=== PATIENT | male | born 1975 | race Caucasian/White ===

== ENCOUNTER 2020-03-21 14:11 | Inpatient (IN) | payer OTHER, MEDICARE ==
--- NOTE | 2020-03-21 16:33 | ER Document Report ---
ED Medical Screen (RME) - General Chief Complaint: Abdominal Pain Stated Complaint: CONSTIPATION/ABDOMINAL PAIN Time Seen by Provider: 03/21/20 16:21 Mode of Arrival: Ambulatory Information source: Patient Notes: Otherwise healthy 44-year-old male presents with several day history of abdominal pain, diarrhea and abdominal bloating. Patient reports he thinks he has constipation or bowel obstruction. He denies any history of having a bowel obstruction. He does have a remote history of an inguinal hernia repair when he was a child. Otherwise he has not had any nausea, vomiting, fever. No known exposure to any COVID-19 positive persons. Abdomen slightly distended, mild tenderness to the left lower quadrant. I have greeted and performed a rapid initial assessment of this patient. A comprehensive ED assessment and evaluation of the patient, analysis of test results and completion of the medical decision making process will be conducted by additional ED providers. I have specifically instructed the patient or family members with the patient to immediately return to any nursing staff should anything change in the patient's condition or with their chief complaint. - Related Data Allergies/Adverse Reactions: No Known Allergies Allergy (Verified 03/21/20 16:29) Past Medical History - Social History Frequency of alcohol use: None Drug Abuse: None Physical Exam - Vital signs Vitals: Temp Pulse Resp BP Pulse Ox 99.4 F 78 16 154/86 H 100 03/21/20 14:20 03/21/20 14:20 03/21/20 14:20 03/21/20 14:20 03/21/20 14:20 Course - Vital Signs Vital signs: Temp Pulse Resp BP Pulse Ox 99.4 F 78 16 154/86 H 100 03/21/20 14:20 03/21/20 14:20 03/21/20 14:20 03/21/20 14:20 03/21/20 14:20
--- NOTE | 2020-03-21 16:37 | RADIOLOGY REPORT (SQ) ---
EXAM DESCRIPTION: KUB/ABDOMEN (SINGLE VIEW) IMAGES COMPLETED DATE/TIME: 03/21/2020 4:28 pm REASON FOR STUDY: abd pain, no BM COMPARISON: None. NUMBER OF VIEWS: One view. TECHNIQUE: Supine radiographic image of the abdomen acquired. LIMITATIONS: None. FINDINGS: BOWEL GAS PATTERN: Normal bowel gas pattern. No dilated loops. CALCIFICATIONS: Scattered calcific densities overlie the pelvis, likely pelvic phleboliths. Punctate radiodensity overlies right colon, possibly retained contrast from prior contrasted exam or bismuth (Pepto-Bismol). SOFT TISSUES: No gross mass or suggestion of organomegaly. HARDWARE: None in the abdomen. BONES: No acute fracture. No worrisome bone lesions. OTHER: No other significant finding. IMPRESSION: No evidence of intestinal obstruction or other acute intra-abdominal/pelvic process. TECHNICAL DOCUMENTATION: JOB ID: [id number] [employer]- All Rights Reserved Reading location - IP/workstation name: [email or web address]
[2020-03-21 16:58] LABS: ABSOLUTE EOSINOPHILS # (AUTO) 0.2 10^3/uL (0.0-0.6); ABSOLUTE LYMPHOCYTES (AUTO) 3.2 10^3/uL (0.5-4.7); ABSOLUTE MONOCYTES (AUTO) 0.7 10^3/uL (0.1-1.4); ABSOLUTE NEUT (AUTO) 7.1 10^3/uL (1.7-8.2); BASOPHILS % (AUTO) 0.4 % (0-2); EOSINOPHILS % (AUTO) 1.8 % (0-6); HEMATOCRIT 46.2 % (37.9-51.0); HEMOGLOBIN 16.2 g/dL (13.5-17.0); LYMPHOCYTES % (AUTO) 28.3 % (13-45); MEAN CORPUSCULAR HEMOGLOBIN 31.3 pg (27.0-33.4); MEAN CORPUSCULAR VOLUME 89 fl (80-97); MONOCYTES % (AUTO) 6.3 % (3-13); PLATELET COUNT 307 10^3/uL (150-450); RED BLOOD COUNT 5.17 10^6/uL (4.35-5.55); RED CELL DISTRIBUTION WIDTH 13.2 % (11.5-14.0); SEGMENTED NEUTROPHILS % (AUTO) 63.2 % (42-78); TOTAL CELLS COUNTED % (AUTO) 100 %; WHITE BLOOD COUNT 11.2 10^3/uL (4.0-10.5)
[2020-03-21 17:17] LABS: APPEARANCE,URINE CLEAR; BILIRUBIN,URINE NEGATIVE (NEGATIVE); COLOR,URINE YELLOW; GLUCOSE, URINE NEGATIVE (NEGATIVE); KETONES,URINE NEGATIVE (NEGATIVE); LEUKOCYTE ESTERASE,URINE NEGATIVE (NEGATIVE); NITRITE,URINE NEGATIVE (NEGATIVE); PROTEIN,URINE NEGATIVE (NEGATIVE); URINE SPECIFIC GRAVITY 1.017; UROBILINOGEN,URINE NEGATIVE mg/dL (<2.0)
[2020-03-21 17:18] LABS: ALBUMIN 4.8 g/dL (3.5-5.0); ALKALINE PHOSPHATASE 89 U/L (38-126); ANION GAP 6 (5-19); ASPARTATE AMINO TRANSFERASE 28 U/L (17-59); BILIRUBIN,TOTAL 0.5 mg/dL (0.2-1.3); BLOOD UREA NITROGEN 11 mg/dL (7-20); CARBON DIOXIDE 26 mmol/L (22-30); CHLORIDE 105 mmol/L (98-107); GLUCOSE 109 mg/dL (75-110); POTASSIUM 4.5 mmol/L (3.6-5.0); TOTAL PROTEIN 7.7 g/dL (6.3-8.2)
--- NOTE | 2020-03-21 23:58 | ER Document Report ---
ED GI/ - General Chief Complaint: Abdominal Pain Stated Complaint: CONSTIPATION/ABDOMINAL PAIN Time Seen by Provider: 03/21/20 16:21 Mode of Arrival: Ambulatory Notes: 44-year-old man presents to the emergency department with a 2-day history of left lower quadrant abdominal pain. Patient notes that he is had the sensation of constipation and has had some diarrhea over the past 24 hours. He denies fever, nausea vomiting or a prior history of abdominal surgeries. He rates his pain a 10/10 and located in the left lower quadrant area. - Related Data Allergies/Adverse Reactions: No Known Allergies Allergy (Verified 03/21/20 17:07) Past Medical History - General Information source: Patient - Social History Smoking Status: Current Every Day Smoker Frequency of alcohol use: None Drug Abuse: None Family History: Reviewed & Not Pertinent Review of Systems - Review of Systems Notes: Constitutional: Negative for fever. HENT: Negative for sore throat. Eyes: Negative for visual changes. Cardiovascular: Negative for chest pain. Respiratory: Negative for shortness of breath. Gastrointestinal: + Left lower quadrant abdominal pain Genitourinary: Negative for dysuria. Musculoskeletal: Negative for back pain. Skin: Negative for rash. Neurological: Negative for headaches, weakness or numbness. 10 point ROS negative except as marked above and in HPI. Physical Exam - Vital signs Vitals: Temp Pulse Resp BP Pulse Ox 99.4 F 78 16 154/86 H 100 03/21/20 14:20 03/21/20 14:20 03/21/20 14:20 03/21/20 14:20 03/21/20 14:20 - Notes Notes: PHYSICAL EXAMINATION: Physical Exam: General: Well-nourished well-developed 44-year-old man in moderate distress secondary to left lower quadrant HEENT: NC/AT, pupils equal round and reactive to light, MM moist,nares clear, oropharynx clear, airway patent Neck: supple, no adenopathy, no masses. Good range of motion Lungs: clear, no wheezing, no rales no rhonchi CVS: Regular rate and rhythm no murmur gallop or rub Abdomen: Soft, active, left lower quadrant tenderness, guarding, rebound. No masses noted. Ext: No edema, clubbing or cyanosis. Neuro: Alert and responsive, moving all 4 extremities on command, cranial nerves intact, no focal findings Skin: Intact no open lesions, no rash PSYCH: Normal mood, normal affect. Course - Re-evaluation Re-evalutation: 03/22/20 03:15 Patient presents with a 2-day history of left lower quadrant abdominal pain, with low-grade temperature 99.5, WBC count 11.2 with shift, CT abdomen and pelvis with IV contrast reveals colitis of the descending colon with thickening in the bowel wall and secondary inflammation. He has received Cipro 400 mg IV and Flagyl 500 mg IV, IV hydromorphone use for pain management. Discussed the patient with the hospitalist, , he will admit the patient to the medical floor for further treatment. - Vital Signs Vital signs: Temp Pulse Resp BP Pulse Ox 97.9 F 75 16 135/87 H 96 03/22/20 23:07 03/22/20 23:07 03/22/20 23:07 03/22/20 23:07 03/22/20 23:07 - Laboratory Result Diagrams: 03/21/20 16:35 03/21/20 16:35 Laboratory results interpreted by me: 03/21/20 16:35 WBC 11.2 H - Diagnostic Test Radiology reviewed: Image reviewed, Reports reviewed Radiology results interpreted by me: 03/22/20 02:54 KUB abdominal x-ray: No obstruction, no blockage noted. CT abdomen and pelvis with IV contrast: Patient has bowel wall thickening with inflammatory change noted around the the descending colon compatible with colitis. Discharge - Discharge Clinical Impression: Acute colitis, Abdominal pain, left lower quadrant Condition: Good Disposition: ADMITTED INPATIENT Admitting Provider: Radha (Hospitalist) Unit Admitted: Medical Floor
[2020-03-22] MEDS ORDERED: HYDROMORPHONE HCL INJ/PF 2 MG/ML AMPULE IV ONE ×2 (00:26→02:53)
[2020-03-22] MEDS ORDERED: ONDANSETRON HCL INJ/PF 4 MG/2 ML SDV IV ONE (00:28)
[2020-03-22] MEDS ORDERED: NORMAL SALINE 1000 ML 1,000 ML IV ONE (01:04)
--- NOTE | 2020-03-22 02:29 | RADIOLOGY REPORT (SQ) ---
EXAM DESCRIPTION: CT abdomen and pelvis with contrast CLINICAL HISTORY: 44 years Male, LLQ pain. PT STATES COFFEE GROUND STOOL. COMPARISON: None. TECHNIQUE: Axial images of the abdomen and pelvis were performed utilizing intravenous contrast, with sagittal and coronal reformatted images. This exam was performed according to our departmental dose-optimization program which includes use of Automated Exposure Control, adjustment of the mA and/or kV according to patient size and/or use of iterative reconstruction technique. FINDINGS: There is wall thickening, with mild surrounding inflammation/edema, involving the descending colon, compatible with colitis. No evidence of bowel obstruction. There are multiple small fragments of high density material within the bowel, possibly ingested Pepto-Bismol. The appendix appears normal. There is no significant radiographic abnormality of the liver, spleen, pancreas, adrenal glands or kidneys. No free air or free fluid. IMPRESSION: Colitis involving the descending colon.
[2020-03-22] MEDS ORDERED: METRONIDAZOLE RTU 500 MG/NS 100 ML IV ONE (02:51)
[2020-03-22] MEDS ORDERED: CIPROFLOXACIN 400 MG/D5W RTU 400 MG/200 ML RTUPB IV ONE (02:52)
[2020-03-22] MEDS ORDERED: DEXTROSE 5%-LACTATED RINGERS 1,000 ML IV PRN (03:41)
[2020-03-22] MEDS ORDERED: PROMETHAZINE HCL INJ 25 MG/1 ML VIAL IV PRN (03:41)
[2020-03-22] MEDS ORDERED: LEVALBUTEROL HCL NEB 0.63 MG/3 ML AMPUL NEB PRN (03:41)
[2020-03-22] MEDS ORDERED: MAG HYDROX/AL HYDROX/SIMETH SUSP 30 ML UDCUP PO PRN (03:41)
[2020-03-22] MEDS ORDERED: LORAZEPAM INJ 2 MG/1 ML VIAL IV PRN (03:45)
[2020-03-22] MEDS ORDERED: ACETAMINOPHEN 650 MG SUPP.RECT PR PRN (03:45)
[2020-03-22] MEDS ORDERED: MELATONIN 5 MG TABLET PO PRN (03:45)
[2020-03-22] MEDS ORDERED: ACETAMINOPHEN 325 MG TABLET PO PRN (03:45)
[2020-03-22] MEDS ORDERED: GUAIFENESIN SYRP 200 MG/10 ML UDC PO PRN (03:45)
[2020-03-22] MEDS ORDERED: NICOTINE 21 MG/24 HR PATCH.TD24 TD PRN (03:45)
[2020-03-22] MEDS ORDERED: METHYLPREDNISOLONE INJ 125 MG/2 ML SDV IV ONE (03:48)
[2020-03-22] MEDS: MORPHINE SULFATE 10 MG/ML INJ IV PRN ×5 (06:26→23:08)
--- NOTE | 2020-03-22 06:26 | PDOC H&P ---
History of Present Illness Admission Date/PCP: 03/22/2020 03:23 [facility] Patient complains of: Abdominal pain History of Present Illness: KIM MANZANARES is a 44 year old male presented emergency room with a 2-day history of abdominal pain. He admits the rapid development of severe abdominal pain in his left lower abdomen over the course of the last 2 days. The pain is a constant, severe colicky pressure in the left lower quadrant of the abdomen, without radiation. The pain has been accompanied by obstipation and after he took milk of magnesia he developed diarrhea but did not have relief of his discomfort. He denies associated or accompanying signs and symptoms. He admits a prior similar episode 5 years ago. Has not identified any aggravating or ameliorating factors for his abdominal pain. In the emergency room he was found to have a descending colitis with bowel wall thickening on the CT scan of his abdomen and pelvis. He was subsequently admitted to the hospital for further evaluation and treatment. Past Medical History Cardiac Medical History: Denies: Atrial Fibrillation, Coronary Artery Disease, DVT, Hyperlipidema, Hypertension, Pulmonary Embolism Pulmonary Medical History: Denies: Asthma, Chronic Obstructive Pulmonary Disease (COPD) EENT Medical History: Denies: Cataracts, Ears - Hearing aids Neurological Medical History: Denies: Multiple Sclerosis, Seizures Endocrine Medical History: Reports: Obesity Denies: Diabetes Mellitus Type 1, Diabetes Mellitus Type 2, Hyperthyroidism, Hypothyroidism Renal/ Medical History: Denies: Chronic Kidney Disease, Nephrolithiasis Malignancy Medical History: Reports: None GI Medical History: Denies: Cirrhosis, Gastroesophageal Reflux Disease, Hepatitis, Peptic Ulcer Disease Musculoskeltal Medical History: Denies: Arthritis, Gout Skin Medical History: Denies: Eczema, Psoriasis Psychiatric Medical History: Reports: Tobacco Dependency Denies: Alcohol Dependency, Substance Abuse Traumatic Medical History: Reports: None Hematology: Denies: Anemia, Bleeding Tendencies Infectious Medical History: Reports: None Past Surgical History Past Surgical History: Reports: Herniorrhaphy, Other - Colonoscopy Social History Information Source: Patient Lives with: Spouse/Significant other Smoking Status: Current Every Day Smoker Electronic Cigarette use?: No Frequency of Alcohol Use: None Hx Recreational Drug Use: No Drugs: None Hx Prescription Drug Abuse: No - Advance Directive Resuscitation Status: Full Code Surrogate healthcare decision maker:: Faye Manzanares Family History Family History: CAD, DM. denies: Hypertension, Malignancy Parental Family History Reviewed: Yes Children Family History Reviewed: No Sibling(s) Family History Reviewed.: Yes Medication/Allergy Allergies/Adverse Reactions: No Known Allergies Allergy (Verified 03/21/20 17:07) Review of Systems Constitutional: ABSENT: chills, fever(s) Eyes: ABSENT: visual disturbances, other - Eye pain Ears: ABSENT: hearing changes, other - Ear pain Nose, Mouth, and Throat: ABSENT: headache(s), sore throat Cardiovascular: ABSENT: chest pain, palpitations Respiratory: ABSENT: cough, dyspnea Gastrointestinal: PRESENT: as per HPI, abdominal pain, constipation, diarrhea, other - Obstipation. ABSENT: nausea, vomiting Genitourinary: ABSENT: dysuria, hematuria Musculoskeletal: ABSENT: back pain, joint swelling Integumentary: ABSENT: pruritus, rash Neurological: ABSENT: confusion, convulsions, focal weakness, memory loss, syncope Psychiatric: ABSENT: anxiety, depression Endocrine: ABSENT: cold intolerance, heat intolerance Hematologic/Lymphatic: ABSENT: easy bleeding, easy bruising Allergic/Immunologic: ABSENT: seasonal rhinorrhea Physical Exam Vital Signs: Temp Pulse Resp BP Pulse Ox 99.4 F 78 16 154/86 H 100 03/21/20 14:20 03/21/20 14:20 03/21/20 14:20 03/21/20 14:20 03/21/20 14:20 Intake & Output 03/20/20 03/21/20 03/22/20 23:59 23:59 23:59 Weight 104.2 kg General appearance: PRESENT: cooperative, other - Moderate distress secondary to abdominal pain Head exam: PRESENT: atraumatic, normocephalic Eye exam: PRESENT: conjunctiva pink. ABSENT: conjunctival injection, scleral icterus Ear exam: PRESENT: normal external ear exam. ABSENT: bleeding, drainage Mouth exam: PRESENT: dry mucosa, neck supple Neck exam: ABSENT: thyromegaly, tracheal deviation Respiratory exam: PRESENT: clear to auscultation rashid, symmetrical, unlabored Cardiovascular exam: PRESENT: RRR. ABSENT: clicks, gallop, rubs Pulses: PRESENT: normal radial pulses, normal dorsalis pedis pul Vascular exam: PRESENT: normal capillary refill. ABSENT: pallor GI/Abdominal exam: PRESENT: hypoactive bowel sounds, soft, tenderness - Generalized tenderness in the left lower quadrant without localization Rectal exam: PRESENT: deferred Extremities exam: ABSENT: joint swelling, pedal edema Musculoskeletal exam: ABSENT: deformity, dislocation Neurological exam: PRESENT: alert, oriented to person, oriented to place, oriented to time, oriented to situation, CN II-XII grossly intact. ABSENT: motor sensory deficit Psychiatric exam: PRESENT: appropriate affect, normal mood Skin exam: PRESENT: dry, intact, warm. ABSENT: jaundice, rash, urticaria Results Laboratory Results: 03/21/20 16:35 03/21/20 16:35 03/21/20 03/21/20 03/21/20 16:35 16:35 16:35 WBC 11.2 H RBC 5.17 Hgb 16.2 Hct 46.2 MCV 89 MCH 31.3 MCHC 35.0 RDW 13.2 Plt Count 307 Seg Neutrophils % 63.2 Sodium 137.4 Potassium 4.5 Chloride 105 Carbon Dioxide 26 Anion Gap 6 BUN 11 Creatinine 0.72 Est GFR ( Amer) > 60 Glucose 109 Calcium 10.0 Total Bilirubin 0.5 AST 28 Alkaline Phosphatase 89 Total Protein 7.7 Albumin 4.8 Lipase 60.1 Urine Color YELLOW Urine Appearance CLEAR Urine pH 5.0 Ur Specific [place] 1.017 Urine Protein NEGATIVE Urine Glucose (UA) NEGATIVE Urine Ketones NEGATIVE Urine Blood NEGATIVE Urine Nitrite NEGATIVE Ur Leukocyte Esterase NEGATIVE Urine WBC (Auto) 1 Urine RBC (Auto) 0 Impressions: KUB X-Ray 03/21/20 16:21 IMPRESSION: No evidence of intestinal obstruction or other acute intra- abdominal/pelvic process. Abdomen/Pelvis CT 03/22/20 00:42 IMPRESSION: Colitis involving the descending colon. Assessment and Plan - Diagnosis (1) Acute colitis Is this a current diagnosis for this admission?: Yes (2) Abdominal pain, left lower quadrant Is this a current diagnosis for this admission?: Yes (3) Leukocytosis Qualifiers: Leukocytosis type: unspecified Qualified Code(s): D72.829 - Elevated white blood cell count, unspecified Is this a current diagnosis for this admission?: Yes (4) Tobacco use disorder, continuous Is this a current diagnosis for this admission?: Yes - Plan Summary Summary: Patient will be admitted to the medical floor he will receive routine supportive and symptomatic cares. He will be treated with intravenous metronidazole and ciprofloxacin. He will receive IV Solu-Medrol 40 mg every 8 hours after initial 125 mg IV dose. He will be on a clear liquid diet. A surgical consultation with Dr. Carbone will be obtained in the morning. Patient will use morphine sulfate 2 to 4 mg IV every 2 hours as needed for pain. He will receive Ativan 1 mg IV every 4 hours as needed for anxiety or restlessness. CBCs, metabolic profiles and additional laboratory and/or radiographic evaluations will be obtained as needed. Smoking cessation is advised and counseled briefly at the bedside. A nicotine replacement patch is available for the patient's use, if desired. - Time Time Spent with patient: 15-24 minutes Smoking Cessation Education: 3 to 10 minutes Medications reviewed and adjusted accordingly: Yes Anticipated Discharge Disposition: Home, Self Care Anticipated Discharge Timeframe: within 72 hours - Inpatient Certification Based on my medical assessment, after consideration of the patient's comorbidities, presenting symptoms, or acuity I expect that the services needed warrant INPATIENT care.: Yes I certify that my determination is in accordance with my understanding of Medicare's requirements for reasonable and necessary INPATIENT services [42 CFR 412.3e].: Yes Medical Necessity: Need Close Monitoring Due to Risk of Patient Decompensation, Need for Pain Control, Need for IV Antibiotics
[2020-03-22] MEDS: HEPARIN SOD (PORCINE) 5,000 UNIT/ML 1 ML VIAL SUBCUT SCH ×3 (06:27→22:09)
[2020-03-22] MEDS: FAMOTIDINE INJ/PF 20 MG/2 ML SDV IV SCH ×2 (10:55→22:09)
[2020-03-22] MEDS: CIPROFLOXACIN 400 MG/D5W RTU 400 MG/200 ML RTUPB IV SCH ×2 (10:56→22:06)
[2020-03-22] MEDS: DOCUSATE SODIUM 100 MG/10 ML UDC PO SCH ×3 (10:59→22:06)
--- NOTE | 2020-03-22 11:10 | PDOC CONSULTATION ---
Consultation Consult Date: 03/22/20 Provider Consulted: ARCHIE INMAN Consult reason:: abnormal CT, coffee ground emesis History of Present Illness Admission Date/PCP: 03/22/20 03[facility] History of Present Illness: KIM MANZANARES is a 44 year old male I was called by Dr Jacinto on this patient patient has complaints of abdominal pain, had CT scan done showing possible circumferential lesion in the descending colon patient however also has coffee ground like stools referred for possible procedure H/H is stable there is a ? of whether it could be a colitis however will need EGD and colonoscopy, the EGD is for the coffee ground stools since a colitis likely will not present that way H/H is stable Past Medical History Cardiac Medical History: Denies: Atrial Fibrillation, Coronary Artery Disease, DVT, Hyperlipidema, Hypertension, Pulmonary Embolism Pulmonary Medical History: Denies: Asthma, Chronic Obstructive Pulmonary Disease (COPD) EENT Medical History: Denies: Cataracts, Ears - Hearing aids Neurological Medical History: Denies: Multiple Sclerosis, Seizures Endocrine Medical History: Reports: Obesity Denies: Diabetes Mellitus Type 1, Diabetes Mellitus Type 2, Hyperthyroidism, Hypothyroidism Renal/ Medical History: Denies: Chronic Kidney Disease, Nephrolithiasis Malignancy Medical History: Reports: None GI Medical History: Denies: Cirrhosis, Gastroesophageal Reflux Disease, Hepatitis, Peptic Ulcer Disease Musculoskeltal Medical History: Denies: Arthritis, Gout Skin Medical History: Denies: Eczema, Psoriasis Psychiatric Medical History: Reports: Tobacco Dependency Denies: Alcohol Dependency, Depression, Substance Abuse Traumatic Medical History: Reports: None Hematology: Denies: Anemia, Bleeding Tendencies Infectious Medical History: Reports: None Past Surgical History Past Surgical History: Reports: None, Herniorrhaphy, Other - Colonoscopy Social History Lives with: Spouse/Significant other Smoking Status: Current Every Day Smoker Electronic Cigarette use?: No Frequency of Alcohol Use: None Hx Recreational Drug Use: No Drugs: None Hx Prescription Drug Abuse: No - Advance Directive Resuscitation Status: Full Code Family History Family History: CAD, DM. denies: Hypertension, Malignancy Parental Family History Reviewed: Yes Children Family History Reviewed: Unknown Sibling(s) Family History Reviewed.: Unknown Medication/Allergy Allergies/Adverse Reactions: No Known Allergies Allergy (Verified 03/21/20 17:07) Review of Systems Constitutional: ABSENT: fever(s), headache(s), night sweats, weakness Eyes: ABSENT: visual disturbances Nose, Mouth, and Throat: ABSENT: mouth pain, sore throat Cardiovascular: ABSENT: edema, orthropnea, palpitations Respiratory: ABSENT: dyspnea, hemoptysis Gastrointestinal: PRESENT: melena. ABSENT: heartburn, hematemesis, hematochezia Genitourinary: ABSENT: dysuria, hematuria Neurological: ABSENT: syncope, tingling, tremor(s), vertigo Endocrine: ABSENT: polydipsia, polyphagia, polyuria Hematologic/Lymphatic: ABSENT: easy bruising Physical Exam Vital Signs: Temp Pulse Resp BP Pulse Ox 97.4 F 58 L 16 143/87 H 97 03/22/20 06:15 03/22/20 06:15 03/22/20 06:15 03/22/20 06:15 03/22/20 06:15 Intake & Output 03/21/20 03/22/20 03/23/20 06:59 06:59 06:59 Intake Total 100 200 Balance 100 200 Weight 100.7 kg General appearance: PRESENT: no acute distress, well-developed, well-nourished Eye exam: PRESENT: EOMI, PERRLA. ABSENT: nystagmus, periorbital swelling, scleral icterus Mouth exam: PRESENT: moist, neck supple Throat exam: ABSENT: tonsillar exudate, tonsillogmegaly Neck exam: ABSENT: meningismus, tenderness, thyromegaly Respiratory exam: PRESENT: symmetrical, unlabored. ABSENT: tachypnea, wheezes Cardiovascular exam: PRESENT: RRR, +S1, +S2 GI/Abdominal exam: PRESENT: soft. ABSENT: rebound, rigid, tenderness Extremities exam: ABSENT: joint swelling Musculoskeletal exam: PRESENT: full ROM Neurological exam: PRESENT: oriented to time, oriented to situation, reflexes normal, CN II-XII grossly intact Focused psych exam: ABSENT: restlessness Skin exam: PRESENT: normal color. ABSENT: mottled, pallor, urticaria, vesicles Results Laboratory Results: 03/21/20 16:35 03/21/20 16:35 03/21/20 03/21/20 03/21/20 16:35 16:35 16:35 WBC 11.2 H RBC 5.17 Hgb 16.2 Hct 46.2 MCV 89 MCH 31.3 MCHC 35.0 RDW 13.2 Plt Count 307 Seg Neutrophils % 63.2 Sodium 137.4 Potassium 4.5 Chloride 105 Carbon Dioxide 26 Anion Gap 6 BUN 11 Creatinine 0.72 Est GFR ( Amer) > 60 Glucose 109 Calcium 10.0 Total Bilirubin 0.5 AST 28 Alkaline Phosphatase 89 Total Protein 7.7 Albumin 4.8 Lipase 60.1 Urine Color YELLOW Urine Appearance CLEAR Urine pH 5.0 Ur Specific [place] 1.017 Urine Protein NEGATIVE Urine Glucose (UA) NEGATIVE Urine Ketones NEGATIVE Urine Blood NEGATIVE Urine Nitrite NEGATIVE Ur Leukocyte Esterase NEGATIVE Urine WBC (Auto) 1 Urine RBC (Auto) 0 Impressions: KUB X-Ray 03/21/20 16:21 IMPRESSION: No evidence of intestinal obstruction or other acute intra- abdominal/pelvic process. Abdomen/Pelvis CT 03/22/20 00:42 IMPRESSION: Colitis involving the descending colon. Assessment & Plan - Diagnosis (1) Abnormal CT of the abdomen Plan: lesion noted in descending colon , will need colonoscopy Risks, benefits and alternatives are discussed will need colonoscopy stable H/H no evidence of diverticulitis has LLQ pain (2) Melena Plan: will need EGD as well Risks, benefits and alternatives are discussed (3) Abdominal pain, left lower quadrant Is this a current diagnosis for this admission?: Yes Plan: ? etiology, patient to proceed with testing - Time Time Spent: 50 to 70 Minutes
[2020-03-22] MEDS ORDERED: PEG 3350/NA SULF,BICARB,CL/KCL 4000 ML PO ONE (13:00)
[2020-03-22] MEDS: METHYLPREDNISOLONE INJ 40 MG/1 ML SDV IV SCH ×2 (13:19→22:06)
[2020-03-22] MEDS ORDERED: LORAZEPAM 0.5 MG TABLET PO PRN (13:56)
[2020-03-22] MEDS: METRONIDAZOLE 500 MG/NS RTU 500 MG/100 ML RTUPB IV SCH ×2 (14:09→17:56)
--- NOTE | 2020-03-22 16:49 | Progress Note ---
Provider Note Provider Note: patient has refused Covid 19 testing his Hgb is stable, will defer on procedures for now follow up H/H outpatient follow up, if he does want any procedures done here at [facility], Covid 19 testing will need to be done one way or another
[2020-03-22] MEDS ORDERED: MIRTAZAPINE 15 MG TABLET PO SCH (22:00)
[2020-03-23] MEDS: MORPHINE SULFATE 10 MG/ML INJ IV PRN ×3 (03:28→10:44)
[2020-03-23] MEDS: METHYLPREDNISOLONE INJ 40 MG/1 ML SDV IV SCH ×2 (03:29→12:47)
[2020-03-23] MEDS: METRONIDAZOLE 500 MG/NS RTU 500 MG/100 ML RTUPB IV SCH ×3 (03:30→12:47)
[2020-03-23] MEDS ORDERED: LEVOTHYROXINE SODIUM 0.1 MG TABLET PO SCH (06:00)
[2020-03-23] MEDS: HEPARIN SOD (PORCINE) 5,000 UNIT/ML 1 ML VIAL SUBCUT SCH (06:44)
[2020-03-23 06:52] LABS: HEMATOCRIT 42.9 % (37.9-51.0); HEMOGLOBIN 15.1 g/dL (13.5-17.0); MEAN CORPUSCULAR HEMOGLOBIN 31.2 pg (27.0-33.4); MEAN CORPUSCULAR HGB CONC 35.1 g/dL (32.0-36.0); MEAN CORPUSCULAR VOLUME 89 fl (80-97); PLATELET COUNT 280 10^3/uL (150-450); RED BLOOD COUNT 4.83 10^6/uL (4.35-5.55); RED CELL DISTRIBUTION WIDTH 13.1 % (11.5-14.0); WHITE BLOOD COUNT 10.1 10^3/uL (4.0-10.5)
[2020-03-23 07:18] LABS: ANION GAP 7 (5-19); BLOOD UREA NITROGEN 10 mg/dL (7-20); CALCIUM 9.6 mg/dL (8.4-10.2); CARBON DIOXIDE 23 mmol/L (22-30); CHLORIDE 108 mmol/L (98-107); GLUCOSE 133 mg/dL (75-110); POTASSIUM 4.4 mmol/L (3.6-5.0)
[2020-03-23] MEDS ORDERED: LITHIUM CARBONATE 300 MG CAPSULE PO SCH (10:00)
[2020-03-23] MEDS: CHOLECALCIFEROL (D3) 1,000 UNIT (25 MCG) TABLET PO SCH ×2 (10:45→10:49)
[2020-03-23] MEDS: FAMOTIDINE INJ/PF 20 MG/2 ML SDV IV SCH (10:48)
[2020-03-23] MEDS: CIPROFLOXACIN 400 MG/D5W RTU 400 MG/200 ML RTUPB IV SCH (10:48)
[2020-03-23] MEDS: DOCUSATE SODIUM 100 MG/10 ML UDC PO SCH (10:49)
--- NOTE | 2020-03-23 11:33 | PDOC DISCHARGE SUMMARY ---
Impression - Admit/DC Date/PCP Admission Date/Primary Care Provider: 03/22/20 03:[facility] Discharge Date: 03/23/20 - Discharge Diagnosis (1) Acute colitis Is this a current diagnosis for this admission?: Yes (2) Abdominal pain, left lower quadrant Is this a current diagnosis for this admission?: Yes (3) Leukocytosis Is this a current diagnosis for this admission?: Yes (4) Tobacco use disorder, continuous Is this a current diagnosis for this admission?: Yes - Additional Information Resuscitation Status: Full Code Discharge Diet: As Tolerated Discharge Activity: Activity As Tolerated Referrals: ARCHIE INMAN MD [ACTIVE STAFF] - [facility] [Primary Care Provider] - Follow up as needed Prescriptions: Ciprofloxacin HCl [Cipro 750 mg Tablet] 750 mg PO DAILY 5 Days #5 tablet Prednisone [Deltasone 20 mg Tablet] 40 mg PO DAILY 5 Days #10 tablet Metronidazole [Flagyl 500 mg Tablet] 500 mg PO TID 5 Days #15 tablet Tramadol HCl [Ultram 50 mg Tablet] 50 mg PO BIDP PRN #10 tablet PRN Reason: Home Medications: Cholecalciferol (Vitamin D3) [Vitamin D3] 25 mcg PO DAILY 03/22/20 Levothyroxine Sodium [Synthroid] 200 mcg PO DAILY 03/22/20 [place] Carbonate [Lithobid 300 mg Capsule] 300 mg PO DAILY 03/22/20 Lorazepam [Ativan 0.5 mg Tablet] 0.5 mg PO DAILYP PRN 03/22/20 Mirtazapine 30 mg PO QHS 03/22/20 Pravastatin Sodium 40 mg PO QHS 03/22/20 Ciprofloxacin HCl [Cipro 750 mg Tablet] 750 mg PO DAILY 5 Days #5 tablet 03/23/20 Metronidazole [Flagyl 500 mg Tablet] 500 mg PO TID 5 Days #15 tablet 03/23/20 Prednisone [Deltasone 20 mg Tablet] 40 mg PO DAILY 5 Days #10 tablet 03/23/20 Tramadol HCl [Ultram 50 mg Tablet] 50 mg PO BIDP PRN #10 tablet 03/23/20 History of Present Illiness History of Present Illness: According to admitting provider: KIM MANZANARES is a 44 year old male presented emergency room with a 2-day history of abdominal pain. He admits the rapid development of severe abdominal pain in his left lower abdomen over the course of the last 2 days. The pain is a constant, severe colicky pressure in the left lower quadrant of the abdomen, without radiation. The pain has been accompanied by obstipation and after he took milk of magnesia he developed diarrhea but did not have relief of his discomfort. He denies associated or accompanying signs and symptoms. He admits a prior similar episode 5 years ago. Has not identified any aggravating or ameliorating factors for his abdominal pain. In the emergency room he was found to have a descending colitis with bowel wall thickening on the CT scan of his abdomen and pelvis. He was subsequently admitted to the hospital for further evaluation and treatment. Hospital Course Hospital Course: Patient was admitted to the hospital for evaluation of abdominal pain. Blood work revealed leukocytosis which was only mild at 11,000. Vital signs were stable. Abdominal CAT scan revealed acute colitis of the descending colon which could be infectious or inflammatory. Patient was started on antibiotics with ciprofloxacin and Flagyl. Patient was also started empirically on IV Solu- Medrol with suspicion of potential etiology being inflammatory condition such as inflammatory bowel disease though patient has never been diagnosed with this. Plan was to perform a colonoscopy to evaluate for possible inflammatory bowel disease but patient refused to do a COVID-19 screen as he did not want to be in the hospital for the next 2 days awaiting the result before having colonoscopy done. As a result, his colonoscopy plan has been canceled. Patient has been referred to follow-up with gastroenterology as outpatient to have this planned. Of note, his ESR and CRP actually normal. Patient has been tolerating his diet adequately and did well with his breakfast this morning as well. He still has some abdominal pain but feels better. He has not had any recurrence of diarrhea since he has been in the hospital. Patient will be discharged home on ciprofloxacin and Flagyl and 5 days of prednisone with outpatient referral for gastroenterology. Physical Exam Vital Signs: Temp Pulse Resp BP Pulse Ox 97.9 F 72 18 135/87 H 96 03/22/20 23:07 03/23/20 10:32 03/23/20 10:32 03/22/20 23:07 03/23/20 10:32 Intake & Output 03/22/20 03/23/20 03/24/20 06:59 06:59 06:59 Intake Total 100 2970 100 Balance 100 2970 100 Weight 100.7 kg 100.7 kg General appearance: PRESENT: no acute distress, cooperative Neck exam: ABSENT: JVD Respiratory exam: PRESENT: unlabored GI/Abdominal exam: PRESENT: soft, tenderness - Mild left lower quadrant. ABSENT: distended, firm, guarding, rebound, rigid Results Laboratory Results: WBC 10.1 10^3/uL (4.0-10.5) 03/23/20 06:11 RBC 4.83 10^6/uL (4.35-5.55) 03/23/20 06:11 Hgb 15.1 g/dL (13.5-17.0) 03/23/20 06:11 Hct 42.9 % (37.9-51.0) 03/23/20 06:11 MCV 89 fl (80-97) 03/23/20 06:11 MCH 31.2 pg (27.0-33.4) 03/23/20 06:11 MCHC 35.1 g/dL (32.0-36.0) 03/23/20 06:11 RDW 13.1 % (11.5-14.0) 03/23/20 06:11 Plt Count 280 10^3/uL (150-450) 03/23/20 06:11 Lymph % (Auto) 28.3 % (13-45) 03/21/20 16:35 [place] % (Auto) 6.3 % (3-13) 03/21/20 16:35 Eos % (Auto) 1.8 % (0-6) 03/21/20 16:35 Baso % (Auto) 0.4 % (0-2) 03/21/20 16:35 Absolute Neuts (auto) 7.1 10^3/uL (1.7-8.2) 03/21/20 16:35 Absolute Lymphs (auto) 3.2 10^3/uL (0.5-4.7) 03/21/20 16:35 Absolute Monos (auto) 0.7 10^3/uL (0.1-1.4) 03/21/20 16:35 Absolute Eos (auto) 0.2 10^3/uL (0.0-0.6) 03/21/20 16:35 Absolute Basos (auto) 0.0 10^3/uL (0.0-0.2) 03/21/20 16:35 Seg Neutrophils % 63.2 % (42-78) 03/21/20 16:35 ESR 10 mm/hr (0-15) 03/22/20 10:15 Sodium 138.0 mmol/L (137-145) 03/23/20 06:11 Potassium 4.4 mmol/L (3.6-5.0) 03/23/20 06:11 Chloride 108 mmol/L (98-107) H 03/23/20 06:11 Carbon Dioxide 23 mmol/L (22-30) 03/23/20 06:11 Anion Gap 7 (5-19) 03/23/20 06:11 BUN 10 mg/dL (7-20) 03/23/20 06:11 Creatinine 0.59 mg/dL (0.52-1.25) 03/23/20 06:11 Est GFR ( Amer) > 60 (>60) 03/23/20 06:11 Est GFR (MDRD) Non-Af > 60 (>60) 03/23/20 06:11 Glucose 133 mg/dL (75-110) H 03/23/20 06:11 Calcium 9.6 mg/dL (8.4-10.2) 03/23/20 06:11 Magnesium 2.1 mg/dL (1.6-2.3) 03/23/20 06:11 Total Bilirubin 0.5 mg/dL (0.2-1.3) 03/21/20 16:35 Direct Bilirubin 0.0 mg/dL (0.0-0.4) 03/21/20 16:35 Neonat Total Bilirubin Not Reportable 03/21/20 16:35 Neonat Direct Bilirubin Not Reportable 03/21/20 16:35 Neonat Indirect Bili Not Reportable 03/21/20 16:35 AST 28 U/L (17-59) 03/21/20 16:35 ALT 40 U/L (<50) 03/21/20 16:35 Alkaline Phosphatase 89 U/L (38-126) 03/21/20 16:35 C-Reactive Protein 8.2 mg/L (<10.0) 03/22/20 10:15 Total Protein 7.7 g/dL (6.3-8.2) 03/21/20 16:35 Albumin 4.8 g/dL (3.5-5.0) 03/21/20 16:35 Lipase 60.1 U/L (23-300) 03/21/20 16:35 Urine Color YELLOW 03/21/20 16:35 Urine Appearance CLEAR 03/21/20 16:35 Urine pH 5.0 (5.0-9.0) 03/21/20 16:35 Ur Specific [place] 1.017 03/21/20 16:35 Urine Protein NEGATIVE mg/dL (NEGATIVE) 03/21/20 16:35 Urine Glucose (UA) NEGATIVE mg/dL (NEGATIVE) 03/21/20 16:35 Urine Ketones NEGATIVE mg/dL (NEGATIVE) 03/21/20 16:35 Urine Blood NEGATIVE (NEGATIVE) 03/21/20 16:35 Urine Nitrite NEGATIVE (NEGATIVE) 03/21/20 16:35 Urine Bilirubin NEGATIVE (NEGATIVE) 03/21/20 16:35 Urine Urobilinogen NEGATIVE mg/dL (<2.0) 03/21/20 16:35 Ur Leukocyte Esterase NEGATIVE (NEGATIVE) 03/21/20 16:35 Urine WBC (Auto) 1 /HPF 03/21/20 16:35 Urine RBC (Auto) 0 /HPF 03/21/20 16:35 Squamous Epi Cells Auto <1 /HPF 03/21/20 16:35 Urine Mucus (Auto) FEW /LPF 03/21/20 16:35 Urine Ascorbic Acid NEGATIVE (NEGATIVE) 03/21/20 16:35 Impressions: KUB X-Ray 03/21/20 16:21 IMPRESSION: No evidence of intestinal obstruction or other acute intra-abdominal/pelvic process. Abdomen/Pelvis CT 03/22/20 00:42 IMPRESSION: Colitis involving the descending colon. Plan Time Spent: Less than 30 Minutes Stroke Is this a Stroke Patient?: No Acute Heart Failure - Is this a Heart Failure Patient?: No
[2020-03-23 20:10] VITALS: BP 130/77
== END 2020-03-23 14:17 | disposition home or self-care (01) | DRG 392 ==
LOC: ER 14:11 → EH 03-22 03:30 → 4N 03-22 05:45
PROVIDERS: ADMIT Emergency Medicine; ATTEND Internal Medicine
DX: A09 Infectious gastroenteritis and colitis, unspecified (principal); D72.829 Elevated white blood cell count, unspecified; F17.200 Nicotine dependence, unspecified, uncomplicated; E66.9 Obesity, unspecified; Z82.49 Family history of ischemic heart disease and other diseases of the circulatory system; Z83.3 Family history of diabetes mellitus
CPT/HCPCS: 36415; 74018; 74177; 80048; 80053; 81001; 83690; 83735; 85025; 85027; 85652; 86140; 96374; 96375; 96376; 99285; J0744; J1170; J1644; J2270; J2405; J2920; J3490; J7030; J7121; S0028